=== PATIENT | male | born 1980 | race Caucasian/White ===

== ENCOUNTER 2017-05-27 08:46 | Emergency (ER) | payer BC ==
[2017-05-27] MEDS ORDERED: ACETAMINOPHEN 500 MG TAB PO ONE (09:03)
--- NOTE | 2017-05-27 09:22 | EDPHY ---
H & P Stated Complaint: on antibiotic for throat abcess since , not getting better Source: Patient, Family () Exam Limitations: No limitations - Personal History Current Tetanus/Diphtheria Vaccine: Unsure Current Tetanus Diphtheria and Acellular Pertussis (TDAP): Unsure - Medical/Surgical History Hx Asthma: No Hx Chronic Respiratory Disease: No Hx Diabetes: No Hx Cardiac Disease: No Hx Renal Disease: No Hx Cirrhosis: No Hx Alcoholism: No Hx HIV/AIDS: No Hx Splenectomy or Spleen Trauma: No Other PMH: depression. siezure disorder. appy - Social History Smoking Status: Never smoked Time Seen by Provider: 05/27/17 09:21 HPI/ROS: HPI: This is a 36-year-old male who presents with Chief Complaint: on antibiotic for throat abscess since , not getting better Location: Throat Quality: Pain Duration: 4 days Signs and Symptoms: + fever, no nausea, no vomiting, no abdominal pain, no neck stiffness, no cough, + swollen glands, no headache, + pain with eating and swallowing Timing: Constant Severity: Moderate to severe Context: Patient has a history of strep pharyngitis diagnosed 4 times over the last year presents with continued throat discomfort and swollen glands accompanied by fever since despite being on clarithromycin. Influenza test negative on per patient. Patient reports that he has a penicillin allergy he believes that caused a rash the is not sure. Last antibiotic was clarithromycin as well. Patient is drinking water taking [id number] pain medication. thinks he may have had scarlet fever this year. Denies any rashes at this time. He has not followed up with ear nose and throat with his repeat strep pharyngitis/tonsillitis. Modifying Factors: See above Comment: ROS: see HPI Constitutional: + fever, no chills, no weight loss Eyes: No blurred vision Respiratory: No shortness of breath, no cough Cardiovascular: No chest pain Gastrointestinal: No nausea, no vomiting, no diarrhea Genitourinary: No dysuria Extremities: No myalgias Neurologic: No weakness, no numbness Skin: No rashes Hematologic: No bruising, no bleeding MEDICAL/SURGICAL/SOCIAL HISTORY: Medical history: Depression, seizure disorder Surgical history: Appendicitis Social history: CONSTITUTIONAL: Ill-appearing but nontoxic adult white male, polite and cooperative, awake and alert, no obvious distress HEENT: Atraumatic and normocephalic, PERRL, EOMI. Tympanic membranes clear. Oropharynx clear, tonsils 1+ no erythema; white exudate, uvula midline and moist pink mucosa. Airway patent. Moderate anterior cervical lymphadenopathy. No meningismus. Cardiovascular: Normal S1/S2, tachycardia, regular rhythm, without murmur rub or gallop. PULMONARY/CHEST: Symmetrical and nontender. Clear to auscultation bilaterally. Good air movement. No accessory muscle usage. ABDOMEN: Soft, nondistended, nontender, no rebound, no guarding, no peritoneal signs, no masses or organomegaly. No CVAT. EXTREMITIES: 2/2 pulses, strength 5/5, no deformities, no clubbing, no cyanosis or edema. NEUROLOGICAL: no focal neuro deficits. GCS 15. SKIN: Warm and dry, no erythema. no rash. Good capillary refill. (Janay Pennington) Constitutional: Initial Vital Signs Temperature (C) 39.4 C H 05/27/17 08:52 Heart Rate 124 H 05/27/17 08:52 Respiratory Rate 20 05/27/17 08:52 Blood Pressure 118/84 H 05/27/17 08:52 O2 Sat (%) 95 05/27/17 08:52 O2 Delivery Mode Room Air Allergies/Adverse Reactions: Penicillins Allergy (Verified 05/27/17 08:51) Home Medications: Medication Instructions Recorded CLARITHROMYCIN 05/27/17 Cefpodoxime Proxetil 100 mg PO BID #20 tablet 05/27/17 Effexor Xr 05/27/17 FOCALIN 05/27/17 predniSONE [predniSONE TAPER] 10 mg PO DAILY 6 Days ea 05/27/17 Medical Decision Making ED Course/Re-evaluation: Labs, IV fluids, IV medication, oral medications ordered Lactic acid ordered due to tachycardia and fever. Given 2 L normal saline, IV Decadron, IV Toradol and p.o. viscous lidocaine, p.o. Tylenol Vital signs greatly improved at discharge. Stop taking clarithromycin as you have been taking macrolide the last 3-4 times for strep infection. Start taking cephalosporin. ENT referral. No signs of airway compromise/tonsillar abscess/Salomon's angina/sepsis Passed p.o. trial prior to discharge. This patient was seen under the supervision of my secondary supervising physician. I evaluated care for this patient independently. (Janay Pennington) I did not see this patient while he was in the emergency department. However his care was discussed with the PA while the patient was in the department. I agree with treatment plan and management (Gabriel Medina) Differential Diagnosis: Differential diagnosis includes but is not limited to strep pharyngitis, post pharyngeal abscess, tonsillar abscess, dehydration, sepsis. (Janay Pennington) - Data Points Laboratory Results: Laboratory Results 05/27/17 09:54 05/27/17 09:54 05/27/17 05/27/17 05/27/17 09:54 09:54 09:54 WBC 10.26 10^3/uL H 10^3/uL (3.80-9.50) RBC 4.81 10^6/uL 10^6/uL (4.40-6.38) Hgb 13.9 g/dL g/dL (13.7-17.5) Hct 39.4 % L % (40.0-51.0) MCV 81.9 fL fL (81.5-99.8) MCH 28.9 pg pg (27.9-34.1) MCHC 35.3 g/dL g/dL (32.4-36.7) RDW 12.7 % % (11.5-15.2) Plt Count 173 10^3/uL 10^3/uL (150-400) MPV 9.7 fL fL (8.7-11.7) Neut % (Auto) 75.5 % H % (39.3-74.2) Lymph % (Auto) 11.6 % L % (15.0-45.0) Whiteside % (Auto) 12.4 % % (4.5-13.0) Eos % (Auto) 0.0 % L % (0.6-7.6) Baso % (Auto) 0.2 % L % (0.3-1.7) Nucleat RBC Rel Count 0.0 % % (0.0-0.2) Absolute Neuts (auto) 7.75 10^3/uL H 10^3/uL (1.70-6.50) Absolute Lymphs (auto) 1.19 10^3/uL 10^3/uL (1.00-3.00) Absolute Monos (auto) 1.27 10^3/uL H 10^3/uL (0.30-0.80) Absolute Eos (auto) 0.00 10^3/uL L 10^3/uL (0.03-0.40) Absolute Basos (auto) 0.02 10^3/uL 10^3/uL (0.02-0.10) Absolute Nucleated RBC 0.00 10^3/uL 10^3/uL (0-0.01) Immature Gran % 0.3 % % (0.0-1.1) Immature Gran # 0.03 10^3/uL 10^3/uL (0.00-0.10) VBG Lactic Acid 1.2 mmol/L mmol/L (0.7-2.1) Sodium 136 mEq/L mEq/L (135-145) Potassium 3.7 mEq/L mEq/L (3.5-5.2) Chloride 100 mEq/L mEq/L (97-110) Carbon Dioxide 22 mEq/l mEq/l (22-31) Anion Gap 14 mEq/L mEq/L (8-16) BUN 9 mg/dL mg/dL (7-23) Creatinine 0.8 mg/dL mg/dL (0.7-1.3) Estimated GFR > 60 Glucose 127 mg/dL H mg/dL (70-100) Calcium 8.9 mg/dL mg/dL (8.5-10.4) Medications Given: Discontinued Medications Acetaminophen (Tylenol) 1,000 mg PO EDNOW ONE Stop: 05/27/17 09:04 Last Admin: 05/27/17 09:08 Dose: 1,000 mg Dexamethasone (Decadron Injection) 10 mg IVP EDNOW ONE Stop: 05/27/17 09:28 Last Admin: 05/27/17 09:48 Dose: 10 mg Sodium Chloride (Ns) 1,000 mls @ 0 mls/hr IV ONCE ONE; Wide Open PRN Reason: Protocol Stop: 05/27/17 09:28 Last Admin: 05/27/17 09:47 Dose: 1,000 mls Sodium Chloride (Ns) 1,000 mls @ 0 mls/hr IV EDNOW ONE; Wide Open PRN Reason: Protocol Stop: 05/27/17 10:49 Last Admin: 05/27/17 10:59 Dose: 1,000 mls Ketorolac Tromethamine (Toradol) 30 mg IVP EDNOW ONE Stop: 05/27/17 09:28 Last Admin: 05/27/17 09:49 Dose: 30 mg Lidocaine (Lidocaine 2% Viscous) 15 ml PO EDNOW ONE Stop: 05/27/17 09:28 Last Admin: 05/27/17 09:50 Dose: 15 ml Departure - Departure Disposition: Home, Routine, Self-Care Clinical Impression: Streptococcal tonsillitis Condition: Good Instructions: Strep Throat (ED) Additional Instructions: Consume a minimum of 8-10 glasses of water or electrolyte fluid replacement drinks that include Gatorade, Powerade, Pedialyte. Eat a bland diet for the next 48 hours and then slowly advance as tolerated. Take Tylenol 650 mg every 4 hours and/or Ibuprofen 600 mg every 8 hours with food as needed for pain. Stop taking clarithromycin and start taking cefpodoxime. Follow up with ENT in 1-2 weeks at which time they will evaluate and recommend with you if conservative management versus adjuvant therapy is indicated. Referrals: SRINI TAVERA [Primary Care Provider] - As per Instructions May Ruth MD [Medical Doctor] - As per Instructions Stand Alone Forms: Airline Excuse Prescriptions: Cefpodoxime Proxetil 100 mg PO BID #20 tablet predniSONE [predniSONE TAPER] 10 mg PO DAILY 6 Days ea
[2017-05-27] MEDS ORDERED: LIDOCAINE 2% VISCOUS 15 ML UDCUP PO ONE (09:27)
[2017-05-27] MEDS ORDERED: DEXAMETHASONE 10 MG/ML VIAL IVP ONE (09:27)
[2017-05-27] MEDS ORDERED: NS 1,000 ML IV ONE ×2 (09:27→10:48)
[2017-05-27] MEDS ORDERED: KETOROLAC 30 MG/1 ML SDV IVP ONE (09:27)
[2017-05-27 10:05] LABS: PLATELET COUNT 173 10^3/uL (150-400)
[2017-05-27 11:50] VITALS: BP 115/73; PULSE 88; RESP 14; TEMP 99.5; O2SAT 98
== END 2017-05-27 11:48 | disposition home or self-care (01) ==
DX: J03.00 Acute streptococcal tonsillitis, unspecified (principal); E86.9 Volume depletion, unspecified
CPT/HCPCS: 96374; J1100; J1885

== ENCOUNTER 2017-07-02 19:04 | Inpatient (IN) | payer BC ==
--- NOTE | 2017-07-02 20:05 | EDPHY ---
H & P Stated Complaint: SI But not currently - Personal History Current Tetanus/Diphtheria Vaccine: Unsure Current Tetanus Diphtheria and Acellular Pertussis (TDAP): Unsure - Medical/Surgical History Hx Asthma: No Hx Chronic Respiratory Disease: No Hx Diabetes: No Hx Cardiac Disease: No Hx Renal Disease: No Hx Cirrhosis: No Hx Alcoholism: No Hx HIV/AIDS: No Hx Splenectomy or Spleen Trauma: No Other PMH: depression. siezure disorder. 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 He has previously been seen a [facility] walk-in clinic and notes very little assistance from their care. His antidepression medications being managed by his primary care provider. History of cutting and burning behavior, none currently. PRIMARY CARE PROVIDER: REVIEW OF SYSTEMS: A ten point review of systems was performed and is negative with the exception of the items mentioned in the HPI PAST MEDICAL & SURGICAL HISTORY: Depression SOCIAL HISTORY: Social alcohol use PHYSICAL EXAM (Prior to examination, patient consented to physical exam, hands were washed and my usual and customary physical exam procedures followed) 1) GENERAL: Well-developed, well-nourished, alert and oriented. Appears to be in no acute distress. Calm cooperative 2) HEAD: Normocephalic, atraumatic 3) HEENT: Pupils equal, round, reactive to light bilaterally. Sclera anicteric. 4) NECK: Full range of motion, no meningeal signs. 5) LUNGS: Clear auscultation bilaterally, no wheezes, no rhonchi, no retractions. 6) HEART: Regular rate and rhythm, no murmur, no heave, no gallop. 7) ABDOMEN: No guarding, no rebound, no focal tenderness, negative McBurney's, negative Gama's, negative Rovsing's, negative peritoneal sign, 8) MUSCULOSKELETAL: Left upper extremity: Multiple subacute linear lesions. No signs of infection. Moving all extremities, no focal areas of tenderness, no obvious trauma. No peripheral edema or discoloration. 9) BACK: No CVA tenderness, no midline vertebral tenderness, no fluctuance, no step-off, no obvious trauma, no visual or palpable abnormality. 10) SKIN: No rash, no petechiae. 11) Psychiatric: Patient is oriented X 3, there is no agitation. Depressed, flat affect DIFFERENTIAL DIAGNOSIS: In no particular order including but not limited to depression, suicidal ideation, homicidal ideation (Radha Heck) Constitutional: Initial Vital Signs Temperature (C) 36.8 C 07/02/17 19:09 Heart Rate 74 07/02/17 19:09 Respiratory Rate 16 07/02/17 19:09 Blood Pressure 134/82 H 07/02/17 19:09 O2 Sat (%) 96 07/02/17 19:09 O2 Delivery Mode Room Air Allergies/Adverse Reactions: Penicillins Allergy (Verified 05/27/17 08:51) Home Medications: Medication Instructions Recorded CLARITHROMYCIN 05/27/17 Cefpodoxime Proxetil 100 mg PO BID #20 tablet 05/27/17 Effexor Xr 05/27/17 FOCALIN 05/27/17 predniSONE [predniSONE TAPER] 10 mg PO DAILY 6 Days ea 05/27/17 Medical Decision Making ED Course/Re-evaluation: 8:03 p.m.: At this time I do not think the patient meets criteria for 72 hr M1 hold. He is in the ER voluntarily. She does note worsening depression with transient suicidal ideation, none currently. Does feel he would benefit from inpatient therapy. Plan will be diagnostic studies and consultation with mental health entry level electrical engineer (Radha Heck) 6:30 a.m.- The patient has remained stable throughout my shift. He is awaiting re- evaluation by the mental health worker this morning. He was evaluated overnight , and he has agreed to a voluntary admission. We will try to place him at [facility] later this morning. The case will be signed out to the oncoming provider Dr. Keita at change of shift. (Latosha Lovelace) 7:00 a.m. the patient's care has been transferred to ca. He is here voluntarily. He denies suicidality but has not been very functional at home. He is currently sleeping comfortably with stable vital signs. They are going to attempt to get him to [facility] today of the bed is available. 8:00 a.m. the patient has been accepted at [address] [facility] [address] Baca. We will complete transfer paperwork. They did request that I cosigned a hold stating that he is gravely disabled. (Alexis Keita) - Data Points Laboratory Results: Laboratory Results 07/02/17 19:45 07/02/17 19:45 07/02/17 20:08 Urine Opiates Screen NEGATIVE (NEGATIVE) Urine Barbiturates NEGATIVE (NEGATIVE) Ur Phencyclidine Scrn NEGATIVE (NEGATIVE) Ur Amphetamine Screen NEGATIVE (NEGATIVE) U Benzodiazepines Scrn NEGATIVE (NEGATIVE) Urine Cocaine Screen NEGATIVE (NEGATIVE) U Marijuana (THC) Screen NEGATIVE (NEGATIVE) Departure - Departure Referrals: SRINI TAVERA [Primary Care Provider] - As per Instructions
[2017-07-02 20:14] LABS: PLATELET COUNT 278 10^3/uL (150-400)
[2017-07-03] MEDS ORDERED: VENLAFAXINE XR 150 MG CAP PO ONE (11:11)
[2017-07-03] MEDS ORDERED: carBAMazepine 200 MG TAB ONE (11:12)
[2017-07-03] MEDS ORDERED: VENLAFAXINE XR 150 MG CAP PO SCH (11:15)
[2017-07-03] MEDS ORDERED: carBAMazepine ER 200 MG CAP PO SCH (11:15)
[2017-07-03] MEDS ORDERED: MAG HYDROX/AL HYDROX/SIMETH 30 ML UDCUP PO PRN (11:16)
[2017-07-03] MEDS ORDERED: ACETAMINOPHEN 325 MG TAB PO PRN (11:16)
[2017-07-03] MEDS ORDERED: MAGNESIUM HYDROXIDE 30 ML UDCUP PO PRN (11:16)
[2017-07-03] MEDS ORDERED: OLANZapine DISINTEGR 10 MG TAB PO PRN (11:16)
[2017-07-03] MEDS ORDERED: NICOTINE POLACRILEX 2 MG GUM B PRN (11:16)
[2017-07-03] MEDS ORDERED: carBAMazepine ER 200 MG TAB PO ONE (11:16)
[2017-07-03] MEDS: carBAMazepine ER 200 MG TAB PO SCH ×2 (11:28→20:57)
[2017-07-03] MEDS ORDERED: hydrOXYzine HCL 25 MG TAB PO PRN (11:47)
[2017-07-03] MEDS ORDERED: IBUPROFEN 200 MG TAB PO PRN (11:47)
[2017-07-03] MEDS ORDERED: VENLAFAXINE HCL 75 MG TAB PO ONE (14:08)
--- NOTE | 2017-07-03 15:12 | BAPA ---
[f rep st] ADMISSION PSYCHIATRIC ASSESSMENT IDENTIFICATION: This is a 37-year-old white male who lives alone, but has partial custody of a 6-year-old son with his ex- who lives in the area. Patient's parents live in [place]. He works at a [employer]. CHIEF COMPLAINT: "The depression has been ratcheting up." HISTORY OF PRESENT ILLNESS: Patient reports he has had some element of depression since he was a child including low energy, low activity, feeling hopeless about the future. He reports he had a concussion around 1999, around age 19. From that he had a loss of consciousness with subsequent nausea and headaches. He was able to graduate from college, but then in 2002 or 2003 he reported worsening depression and anxiety, and started developing suicidal ideation including self-strangulation attempt and an overdose of Tegretol which he had started taking for seizures. The patient reports struggling with severe depression, anxiety, and suicidal thinking since about 2002, but having mild depression prior to that. He does report in the past month sleeping fairly well , but having numerous worries, worrying about the future, feeling distracted. The patient reports recurrent thoughts of or suicide. The patient is a poor historian. He is vague and circumstantial. He does report that he has been on Focalin, Effexor 225 mg for ADHD and depression for the past 2 years, but he does not feel like either of them are helpful. He has been taking Tegretol for seizure disorder since 2003 as well. He has been receiving these medications from his primary care provider. The patient denies any auditory hallucinations or paranoia. He denies agitation, irritability, reckless spending, promiscuity, or decreased need for sleep, or sustained elevated energy. He denies any drug or alcohol abuse. He denies any recent change in his physical health, but reports chronic mild diarrhea. He also has episodic migraine headaches. PAST PSYCHIATRIC HISTORY: As noted above, he started getting mental health treatment around 2002 for depression and anxiety. In 2003, he was hospitalized at a psychiatric facility in [facility]. He reports he was discharged on Effexor and Seroquel. He reports Seroquel was extremely sedating and he discontinued this medication, but has taken Effexor continuously since 2003, interrupted by episodes of trying to switch the Effexor to a different antidepressant. He reports attempts to switch the Effexor to Zoloft, was not beneficial and led to more anxiety and feeling stressed and irritable. He also reports a failed trial of transition from Effexor to Lexapro with some more problems with worsening depression. He denies ever taking lithium or Abilify or ever receiving ECT. He denies any history of violence toward others. The patient reports that in the past few weeks he has been having thoughts of overdosing or cutting himself or burning himself. The patient explained his symptoms to his girlfriend and his girlfriend accompanied him to the emergency department. The patient was admitted to the inpatient unit on M1 hold. PAST MEDICAL HISTORY: As noted above, he had a concussion in 1999. The patient also has a history of migraine headaches and mild diarrhea, and an appendectomy. His primary care provider is [facility], Dr. Castillo. ALLERGIES: He has an allergy to penicillin. LABS: CBC WNL, BMP WNL with glucose 118; Urine Drug Screen negative. SOCIAL HISTORY: He was raised by his parents without abuse or neglect. His parents live in the [place] area. He graduated from high school, graduated from college, got a PhD in computer science. He is and has a 6-year-old son. He and his ex- who is in the area, they have joint custody of him. 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 He denies ever being in the or being arrested. He denies owning a gun. FAMILY HISTORY: He is unsure but he believes a grandmother may have had schizophrenia. He has multiple relatives with depression and anxiety. He denies family history of suicide or substance abuse. VITALS: 118/72, 84, 12, 94% on room air, temp 37.0; MENTAL STATUS EXAM: He is an alert white male in no acute distress. He is ambulatory. He has glasses. He appears very distracted. His speech is regular rate and rhythm with a circumstantial vague thought process. He reports recurrent thoughts of and suicide. Denies plan or intent to harm himself on the unit at this point. He does report having thoughts of overdosing or cutting himself prior to admission. He denies paranoia or hallucinations. He denies violent thoughts. His memory is intact to month, year, hospital. He also has intact serial 7 subtractions and a normal clock drawing test. His insight appears to be limited. His judgment appears to be questionable. ASSESSMENT: Major depressive disorder, recurrent, severe, without psychotic features. Unspecified anxiety disorder. Rule out mood disorder secondary to traumatic brain injury, also, suicidal ideation. PLAN: 1. The patient is on an M1 hold due to concern he may be a danger to himself. He is on 15 minute suicide precautions. 2. The patient was ordered his carbamazepine 200 mg p.o. b.i.d. for his chronic seizure disorder. A level is pending. 3. Will continue the patient's Effexor 225 mg daily as the patient reports failed attempts to reduce or discontinue this medication in the past. 4. Ordered hemoglobin A1c, lipid panel, Tegretol level, TSH and vitamin B12 level to be added onto the blood work from the ER. 5. We will attempt to get collateral information from the patient's parents and girlfriend, as well as the hospitalization he had in [place], which the patient signed a release of information for. 6. Discussed the risks and benefits of either retrying Seroquel augmentation of Effexor, or trying adding on Abilify, lithium, or Remeron for treatment of refractory depression. The patient wanted to review handouts on those medications to review the side-effect profiles before further medication changes. 7. Will discontinue the patient's Focalin as this can interact with venlafaxine and cause agitation or anxiety. 8. Will monitor the patient's mood stability and behavior on the inpatient unit to clarify his diagnosis. /[id number]/MODL MTDD
--- NOTE | 2017-07-03 20:34 | BCON ---
[f rep st] BEHAVIORAL HEALTH CONSULTATION DATE OF CONSULTATION: 07/03/2017 REFERRING PHYSICIAN: AMITA CHAVES MD REASON FOR REFERRAL: Medical clearance for inpatient behavioral health stay. HISTORY OF PRESENT ILLNESS: This patient came to the emergency department yesterday complaining of depression and suicidal ideation. He was assessed by the mental health team and admitted for further psychiatric care on a voluntary basis. He currently is without any acute complaints. PAST MEDICAL HISTORY: 1. Concussion in approximately the year 1999. 2. Seizure disorder subsequent to the concussion. 3. Depression. 4. Appendicitis. 5. Streptococcal pharyngitis. PAST SURGICAL HISTORY: He has had an appendectomy. MEDICATIONS: Prior to admission he was takin. Carbamazepine 200 mg p.o. twice daily. 2. Venlafaxine 225 mg p.o. daily. 3. Dexmethylphenidate 20 mg p.o. daily. ALLERGIES: There is an allergy listed to penicillin. SOCIAL HISTORY: He is and has shared custody of his 6-year-old child. He has a girlfriend. He is a nonsmoker, nondrinker, and he works in [employer]. He has a PhD. FAMILY HISTORY: There is a family history of mental health issues. REVIEW OF SYSTEMS: He reports he has had weight gain of several pounds in recent months. He says he snores. He says he sometimes does not awaken refreshed. He reports that he has a chronic headache which has been present and low-grade since some time after his concussion. He often does not notice it , but if anybody asks him in particular, then he would say "yes" he does have a headache. He is not aware of any current neurologic issues otherwise. Otherwise, a 10-point review of systems is negative. PHYSICAL EXAM: VITAL SIGNS: Blood pressure is 118/72, heart rate is 84, respiratory rate is 12, oxygen saturation is 94% on room air, temperature is 37 degrees centigrade. His weight is 95.2 kg for a body mass index of 27.7. GENERAL: This is an overweight man who appears his chronologic age, cooperative and in no acute distress. HEENT: Extraocular movements are intact. Pupils are equal, round, reactive to light. Mucous membranes are moist. Dentition is in good condition. He has an uncrowded airway, Mallampati class 1. There is no oropharyngeal erythema and no posterior oropharyngeal mucus. NECK: Supple. HEART: There is a regular rate and rhythm with no murmurs, rubs, or gallops. LUNGS: Clear to auscultation bilaterally. ABDOMEN : Benign. EXTREMITIES: There is no cyanosis, clubbing, or edema. Radial and dorsalis pedis pulses are 2+ bilaterally. NEUROLOGICAL: He is alert and oriented x3. Cranial nerves 2-12 are grossly intact. There is no focal weakness. Sensation is intact to light touch and gait is within normal limits. LABORATORY STUDIES: CBC was overall within normal limits. He had an elevation of absolute lymphocytes at 3.07 with the upper range of normal being 3, of no clinical significance. Serum chemistry revealed normal renal function and electrolytes. His creatinine was low at 0.6. Hemoglobin A1c was 5.7. Lipid panel revealed elevated triglycerides at 310. The cholesterol was normal at 199 , LDL was calculated at 83, HDL was 54. B12 level was 326, normal, and TSH was normal 3.65. Toxicology screen in the serum was negative for ethyl alcohol. Toxicology screen in the urine was negative for any substances of abuse. Carbamazepine serum level was undetectable, less than 3. ASSESSMENT/RECOMMENDATIONS: 1. Mental health issues pending further evaluation and management per Psychiatry and the mental health team. 2. Seizure disorder subsequent to remote concussion with a subtherapeutic carbamazepine level. His carbamazepine prescription has been continued and this is appropriate. He has not had a seizure in many years given. Chronic use of carbamazepine: will check a vitamin D level. 3. Weight gain and mildly overweight status. Consider avoiding medications which might cause further weight, though psychosocial stabilization is first priority. 4. Chronic headaches, could be post concussive headache. Given the chronicity , it seems unlikely that these can be fully resolved. Advise follow-up with Neurology after discharge if he wants to pursue further evaluation or treatment. I see no medical contraindications to this patient's continued stay on the inpatient behavioral health unit or to any psychiatric medications or procedures. Thank you very much for including me in the care of this patient and please do not hesitate to contact me or the hospitalist service should there be need for further medical evaluation. /[id number]/MODL MTDD
[2017-07-04] MEDS: carBAMazepine ER 200 MG TAB PO SCH ×2 (10:30→21:20)
[2017-07-04] MEDS: CHOLECALCIFEROL VIT D3 2,000 UNITS TAB/CAP PO SCH (10:32)
[2017-07-04] MEDS: VENLAFAXINE XR 150 MG CAP PO SCH ×3 (10:40→10:45)
[2017-07-04] MEDS: VENLAFAXINE XR 75 MG CAP PO SCH (10:45)
[2017-07-04] MEDS: LITHIUM CARBONATE 300 MG CAP PO SCH ×2 (13:30→21:20)
--- NOTE | 2017-07-04 13:33 | SOAPPROG ---
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 Prior history of attempts. Patient currently denies SI but reports feeling hopeless at times. Patient has failed several prior antidepressant trials and reports worsening symptoms when Effexor tapered in past and no benefit from higher dose. Plan: Patient agrees to voluntary treatment Patient doesn't want increased Tegretol dosing until Neurology evaluation Start Vitamin D, folic acid, and Fish Oil Focalin held/discontinued Continue Effexor 225mg Start Guanfacine 1mg QHS for sleep/ADHD. Discussed risk of syncope and hypotension. VIVIAN handout given. Start [place] 300mg BID as adjunctive treatment for depression. Discussed risk of sedation, drug interactions, signs/symptoms of toxicity, risk of renal and thyroid dysfunction. VIVIAN handout given. Monitor mood and risk of self-harm Discussed lab results with patient 07/04/17 13:40 Subjective: CC: 'alright today so far.' Patient reports difficulty falling asleep and taking Vistaril last night. Reports previous Neurologist told him that he could possibly taper off Tegretol in the future and doesn't want higher dose until discussing with a Neurologist in [place]. Reports no seizure for 10 years. Reports wanting to feel better for himself, son, girlfriend, and job. Reports no plans to harm himself but feels hopeless and overwhelmed 'off and on.' Reviewed handouts on [place] and Seroquel and Abilify and is worried about metabolic syndrome and tardive dyskinesia. Objective: Vital Signs Temp Pulse Resp BP Pulse Ox 36.6 C 70 16 112/67 95 07/04/17 06:00 07/04/17 06:00 07/04/17 06:00 07/04/17 06:00 07/04/17 06:00 Alert WM. No tremors or weakness. Appears preoccupied and distracted at times. Mood 'alright today so far.' Thoughts organized with limited detail. Denies SI or HI or AH or paranoia but reports feeling hopeless 'off and on.' Fair memory. Fair insight. Staff report patient slept 8 hours, attending groups, denies SI on unit. Took PRN Vistaril for difficulty falling asleep yesterday. Mother and girlfriend during visit report patient appears anxious and sad frequently but is able to keep up home, work, and care for son part-time without problems. HgbA1c 5.7, Trig 310 other lipids WNL; B12 326; TSH WNL, vitamin D <12.5 Carbamazepine 3.0 - Time Spent With Patient Time Spent With Patient: 30 minutes - Pending Discharge Pending Discharge Within 24 Hours: No Pending Discharge Within 48 Hours: No ICD10 Worksheet Patient Problems: Problems Problem Status Onset Attention and concentration deficit Acute Major depressive disorder Acute
[2017-07-04] MEDS: guanFACINE HCL 1 MG TAB PO SCH (21:19)
[2017-07-05] MEDS: CHOLECALCIFEROL VIT D3 2,000 UNITS TAB/CAP PO SCH (08:43)
[2017-07-05] MEDS: carBAMazepine ER 200 MG TAB PO SCH ×2 (08:43→20:32)
[2017-07-05] MEDS: OMEGA-3 FATTY ACIDS 1,000 MG CAP PO SCH (08:44)
[2017-07-05] MEDS: VENLAFAXINE XR 150 MG CAP PO SCH (08:44)
[2017-07-05] MEDS: FOLIC ACID 1 MG TAB PO SCH (08:45)
[2017-07-05] MEDS: LITHIUM CARBONATE 300 MG CAP PO SCH ×2 (08:45→20:33)
[2017-07-05] MEDS: VENLAFAXINE XR 75 MG CAP PO SCH (08:45)
[2017-07-05] MEDS ORDERED: hydrOXYzine HCL 25 MG TAB PO PRN (11:06)
--- NOTE | 2017-07-05 12:16 | SOAPPROG ---
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 Prior history of attempts. Patient has failed several prior antidepressant trials and reports worsening symptoms when Effexor tapered in past and no benefit from higher dose. Patient appears less dysphoric and denies SI. Plan: Patient is voluntary Patient doesn't want increased Tegretol dosing until Neurology evaluation Focalin held/discontinued Continue Effexor 225mg Continue Guanfacine 1mg QHS for sleep/ADHD. Continue [place] 300mg BID as adjunctive treatment for depression. Monitor mood and risk of self-harm Check AM BMP and [place] level (will not be steady state) Possible discharge tomorrow if continuing to improve and continuing to safety plan 07/05/17 12:17 Subjective: CC: "OK this morning" Patient reports tolerating Guanfacine and [place], slept well, denies side effects. Reports wanting to live for son, extended family, friends. Reports his strengths are that he is intelligent, hard working, a good friend, and a good father. Reports in past month feeling 'stressed, anxious' and stuggling to enjoy any activities and avoiding social activities and procrastinating on home tasks. Reports intermittent suicidal thoughts in past month were related to feeling that he was a failure due to struggling a work to gain a promotion. Reports now realizing that there are more complex problems at work but wants to 'stick it out' and continue to work in lab. Reports goal of discharge tomorrow if continuing to feel better. Unsure if he will use coping skills after discharge, but wants to be able to relax by exercising, listening to music, talking to friends, or doing art work if upset. Objective: Vital Signs Temp Pulse Resp BP Pulse Ox 36.6 C 70 14 101/57 L 94 07/05/17 06:00 07/05/17 06:00 07/05/17 06:00 07/05/17 06:00 07/05/17 06:00 Alert WM. Glasses. No tremors or weakness. Appears distracted at times. Mood 'OK this morning.' Affect restrict mostly, brief smiling at times. Thoughts organized with better detail than before. Denies SI or HI or AH or paranoia. Fair insight, appropriate judgment. Staff report patient slept 7.5 hours. Calm, quiet on unit. - Time Spent With Patient Time Spent With Patient: 30 minutes - Pending Discharge Pending Discharge Within 24 Hours: Yes Pending Discharge Date: 07/06/17 Pending Discharge Time: 11:00 ICD10 Worksheet Patient Problems: Problems Problem Status Onset Attention and concentration deficit Acute Major depressive disorder Acute
[2017-07-05] MEDS: guanFACINE HCL 1 MG TAB PO SCH ×2 (20:33→22:01)
[2017-07-05] MEDS ORDERED: OLANZapine DISINTEGR 5 MG TAB ONE (20:35)
[2017-07-06] MEDS: VENLAFAXINE XR 150 MG CAP PO SCH (09:12)
[2017-07-06] MEDS: OMEGA-3 FATTY ACIDS 1,000 MG CAP PO SCH (09:12)
[2017-07-06] MEDS: VENLAFAXINE XR 75 MG CAP PO SCH (09:12)
[2017-07-06] MEDS: LITHIUM CARBONATE 300 MG CAP PO SCH (09:12)
[2017-07-06] MEDS: CHOLECALCIFEROL VIT D3 2,000 UNITS TAB/CAP PO SCH (09:12)
[2017-07-06] MEDS: carBAMazepine ER 200 MG TAB PO SCH ×2 (09:12→21:07)
[2017-07-06] MEDS: FOLIC ACID 1 MG TAB PO SCH (09:12)
--- NOTE | 2017-07-06 12:20 | SOAPPROG ---
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 Prior history of attempts. Patient has failed several prior antidepressant trials. Patient reports severe depression and anxiety with mood instability impairing his ability to work. Patient appears internally preoccupied, reports overabundance of thoughts, has briefly rapid speech - concerning for a mixed episode; patient had panic attack yesterday and appears to have mood instability. Plan: Patient is voluntary Patient doesn't want increased Tegretol dosing until Neurology evaluation Focalin held/discontinued Reduce Effexor 150mg due to mixed symptoms Continue Guanfacine 1mg QHS for sleep/ADHD. Increase [place] 450mg BID Start Lorazepam 0.5mg PRN Panic Attack. Discussed risk of depression, amnesia, impulsivity, driving impairment, and no alcohol. Discontinue PRN Olanzapine and PRN Hydroxyzine Monitor mood and risk of self-harm Check [place] level Sunday07/09/17 Possible discharge Sunday07/09/17 if improving 07/06/17 12:29 Subjective: CC: "Not so good, tired" 'stressed about work, maybe I am better, not sure, some times I feel better, sometimes I'm more depressed.' Patient reports yesterday having 'on and off' overabundance of thoughts with multiple worries about future and job. Reports mood instability with times of feeling confident in himself and confident that he can return to work and other times feeling overwhelmed, 'stressed out,' and feeling hopeless that he cannot function. When asked if others have observed him talking fast, says 'a lot of people have said that.' Reports no thoughts of self harm or suicide but felt hopeless about life yesterday. Reports having a panic attack of feeling overwhelmed and agitated yesterday. Reports combination of Olanzapine and Hydroxyzine were not clearly helpful and feels extremely tired. Reports past benefit from PRN Lorazepam. Reports negative emotions and feeling overwhelmed interfere with his functioning at work and reduces motivation to spend time with son. Reports wanting to be well for friends, parents, son, and goal of getting a better job. Objective: Vital Signs Temp Pulse Resp BP Pulse Ox 36.3 C 59 L 14 96/59 L 91 L 07/06/17 06:00 07/06/17 06:00 07/06/17 06:00 07/06/17 06:00 07/06/17 06:00 Laboratory Results 07/06/17 05:45 [place] 0.2 (not steady state, 48 hours of 300mg BID). BMP WNL Staff report patient extremely anxious and briefly agitated with episodic internal preoccupation on unit, got PRN Zydis and PRN Hydroxyzine last night then slept 8 hours. Alert WM. Distracted. Briefly rapid speech. Mood 'not so good, tired this morning' 'stressed about work, maybe I am better, not sure, some times I feel better, sometimes I'm more depressed.' Affect preoccupied. Thoughts briefly organized, limited detail. Denies SI but reports episodic hopelessness. Denies AH or paranoia. No evident delusions. Limited insight. Questionable judgment. - Time Spent With Patient Time Spent With Patient: 30 minutes - Pending Discharge Pending Discharge Within 24 Hours: No Pending Discharge Within 48 Hours: No ICD10 Worksheet Patient Problems: Problems Problem Status Onset Attention and concentration deficit Acute Major depressive disorder Acute
[2017-07-06] MEDS: LITHIUM CARBONATE ER 450 MG TAB PO SCH (21:08)
[2017-07-06] MEDS: guanFACINE HCL 1 MG TAB PO SCH (21:48)
[2017-07-07] MEDS: VENLAFAXINE XR 150 MG CAP PO SCH (08:26)
[2017-07-07] MEDS: LITHIUM CARBONATE ER 450 MG TAB PO SCH ×2 (08:26→20:05)
[2017-07-07] MEDS: OMEGA-3 FATTY ACIDS 1,000 MG CAP PO SCH (08:26)
[2017-07-07] MEDS: CHOLECALCIFEROL VIT D3 2,000 UNITS TAB/CAP PO SCH (08:26)
[2017-07-07] MEDS: FOLIC ACID 1 MG TAB PO SCH (08:26)
[2017-07-07] MEDS: carBAMazepine ER 200 MG TAB PO SCH ×2 (08:27→20:05)
--- NOTE | 2017-07-07 14:34 | SOAPPROG ---
SOAP Progress Note Assessment/Plan: Assessment: Per Dr. 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 Prior history of attempts. Patient has failed several prior antidepressant trials. Patient reports severe depression and anxiety with mood instability impairing his ability to work. Patient appears internally preoccupied, reports overabundance of thoughts, has briefly rapid speech - concerning for a mixed episode; patient had panic attack yesterday and appears to have mood instability. Plan: Patient is voluntary Patient doesn't want increased Tegretol dosing until Neurology evaluation Focalin held/discontinued Reduce Effexor 150mg due to mixed symptoms Continue Guanfacine 1mg QHS for sleep/ADHD. Increase [place] 450mg BID Start Lorazepam 0.5mg PRN Panic Attack. Discussed risk of depression, amnesia, impulsivity, driving impairment, and no alcohol. Discontinue PRN Olanzapine and PRN Hydroxyzine Monitor mood and risk of self-harm Check [place] level Sunday07/09/17 Possible discharge Sunday07/09/17 if improving Plan: 07/07/17 14:31 1. Continue on current med regimen. Denies SE's from [place]. Level on 07/06 was 0.2, dose was increased to 450mg BID. 2. [place] level on 07/09/17. 3. Patient denies any SI/HI. Subjective: Met with patient, reviewed chart and d/w staff. Patient attended art therapy group in AM. He said he "felt good" and was interacting appropriately with peers and participating in treatment. He denies any SE's from lithium and feels he will be ready to discharge on Sunday as planned. He denies any thoughts, plan or intent to hurt himself or anyone else. Objective: Vital Signs Temp Pulse Resp BP Pulse Ox 36.4 C 51 L 14 109/56 L 94 07/07/17 06:00 07/07/17 06:00 07/07/17 06:00 07/07/17 06:00 07/07/17 06:00 Laboratory Results 07/06/17 05:45 MSE: Affect: Euthymic Mood: "Good" TP: Linear TC: Denies any SI/HI, no AH/VH Insight/Judgment: Fair - Time Spent With Patient Time Spent With Patient: 15" - Pending Discharge Pending Discharge Within 24 Hours: No Pending Discharge Within 48 Hours: Yes Pending Discharge Date: 07/09/17 (Likely to d/c on Sunday) Pending Discharge Time: 11:00 ICD10 Worksheet Patient Problems: Problems Problem Status Onset Asperger syndrome Acute Attention and concentration deficit Acute Major depressive disorder Acute Panic attack Acute
[2017-07-07] MEDS: guanFACINE HCL 1 MG TAB PO SCH (20:05)
[2017-07-07] MEDS: LORazepam 0.5 MG TAB PO PRN (22:17)
[2017-07-08] MEDS: OMEGA-3 FATTY ACIDS 1,000 MG CAP PO SCH (08:23)
[2017-07-08] MEDS: VENLAFAXINE XR 150 MG CAP PO SCH (08:23)
[2017-07-08] MEDS: FOLIC ACID 1 MG TAB PO SCH (08:23)
[2017-07-08] MEDS: carBAMazepine ER 200 MG TAB PO SCH ×2 (08:23→20:46)
[2017-07-08] MEDS: LITHIUM CARBONATE ER 450 MG TAB PO SCH ×2 (08:23→20:46)
[2017-07-08] MEDS: CHOLECALCIFEROL VIT D3 2,000 UNITS TAB/CAP PO SCH (08:23)
--- NOTE | 2017-07-08 13:25 | SOAPPROG ---
SOAP Progress Note Assessment/Plan: Assessment: Per Dr. 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 Prior history of attempts. Patient has failed several prior antidepressant trials. Patient reports severe depression and anxiety with mood instability impairing his ability to work. Patient appears internally preoccupied, reports overabundance of thoughts, has briefly rapid speech - concerning for a mixed episode; patient had panic attack yesterday and appears to have mood instability. Plan: Patient is voluntary Patient doesn't want increased Tegretol dosing until Neurology evaluation Focalin held/discontinued Reduce Effexor 150mg due to mixed symptoms Continue Guanfacine 1mg QHS for sleep/ADHD. Increase [place] 450mg BID Start Lorazepam 0.5mg PRN Panic Attack. Discussed risk of depression, amnesia, impulsivity, driving impairment, and no alcohol. Discontinue PRN Olanzapine and PRN Hydroxyzine Monitor mood and risk of self-harm Check [place] level Sunday07/09/17 Possible discharge Sunday07/09/17 if improving Plan: 07/07/17 14:31 1. Continue on current med regimen. Denies SE's from [place]. Level on 07/06 was 0.2, dose was increased to 450mg BID. 2. [place] level on 07/09/17. 3. Patient denies any SI/HI. 07/08/17 13:22 1. CCM - stable 2. [place] level in AM 3. Possible D/C tomorrow to intake eval at [facility] Subjective: Met with patient, reviewed chart and d/w staff. Patient presents calm, cooperative, stable. He reports feeling "good" today, denies feeling sad, depressed or anxious. He rated his anxiety 0 out of 10 this AM. He feels "ready " for d/c tomorrow and is looking forward to starting outpatient treatment through [facility] clinic. He denies any SI/HI. Objective: Vital Signs Temp Pulse Resp BP Pulse Ox 36.6 C 98 14 124/81 H 94 07/08/17 12:39 07/08/17 12:39 07/08/17 12:39 07/08/17 12:39 07/08/17 12:39 Laboratory Results 07/06/17 05:45 MSE: Affect: Euthymic Mood: "Good" denies any anxiety or depression TP: Linear TC: No SI/HI, no AH/VH Insight/Judgment: Fair - Time Spent With Patient Time Spent With Patient: 20" - Pending Discharge Pending Discharge Within 24 Hours: No Pending Discharge Within 48 Hours: No ICD10 Worksheet Patient Problems: Problems Problem Status Onset Asperger syndrome Acute Attention and concentration deficit Acute Major depressive disorder Acute Panic attack Acute
[2017-07-08] MEDS: guanFACINE HCL 1 MG TAB PO SCH (20:46)
[2017-07-08] MEDS: LORazepam 0.5 MG TAB PO PRN (22:10)
[2017-07-09 06:28] VITALS: BP 111/58; PULSE 54; RESP 16; TEMP 97.6; O2SAT 92
[2017-07-09] MEDS: CHOLECALCIFEROL VIT D3 2,000 UNITS TAB/CAP PO SCH (09:20)
[2017-07-09] MEDS: carBAMazepine ER 200 MG TAB PO SCH (09:20)
[2017-07-09] MEDS: OMEGA-3 FATTY ACIDS 1,000 MG CAP PO SCH (09:20)
[2017-07-09] MEDS: FOLIC ACID 1 MG TAB PO SCH (09:20)
[2017-07-09] MEDS: VENLAFAXINE XR 150 MG CAP PO SCH (09:20)
[2017-07-09] MEDS: LITHIUM CARBONATE ER 450 MG TAB PO SCH (09:20)
--- NOTE | 2017-07-09 10:02 | BDS ---
[f rep st] BEHAVIORAL HEALTH DISCHARGE SUMMARY IDENTIFICATION: This is a 37-year-old white male who lives alone in an apartment. He has joint custody of a 6-year-old son with his ex- who lives in the area. His parents live in the [place] area as well. He has a PhD in [employer] science and works in the [employer]. REASON FOR ADMISSION: Please see the initial psychiatric evaluation from July 03, 2017. The patient had reported to his friends that he was having depression with thoughts of overdosing on pills. He was initially admitted to the unit on an M1 hold. HOSPITAL COURSE: The patient agreed to voluntary treatment on the inpatient unit for severe depression. He reported history of social anxiety consistent with Asperger's disorder, with poor social skills since childhood. He had reported inattention, anxiety and depression for many years. He apparently had a concussion in his early 20s and had a seizure subsequent to that, and was on carbamazepine for a history of a seizure disorder, but had not had a seizure for 10 years prior to admission. The patient reported a history of an overdose in a psychiatric hospitalization in [place] around 2002, treated with Effexor and Seroquel. Subsequent to that, the patient's Seroquel was tapered off and he had multiple antidepressant trials over many years for recurrent depression and anxiety. The patient had not been seeing a psychiatrist for 2 years and had not been receiving psychotherapy for several years for anxiety, and had been taking Effexor 225 mg and Focalin 20 mg a day from his primary care provider for depression and inattention. On the unit, the patient initially presented as being anxious, depressed, distracted, and reporting feeling hopeless. He reported no benefit from multiple alternative antidepressant trials. The patient was agreeable to start guanfacine for attention deficit hyperactivity disorder and poor attention and to discontinue the Focalin, as this can interact with Effexor. The patient tolerated guanfacine for sleep and attention deficit hyperactivity disorder without any hypotension or side effects. He appears to have brief panic attacks and was started on Lorazepam 0.5mg PRN. The patient reported previous benefit from PRN lorazepam and reported past usage of only 1-2 times a month. He was counseled about the risk of dependency and withdrawal with Lorazepam, as well as the risk of sedation and driving impairment and importance of not drinking alcohol with this medication. The patient did appear to have recurrent major depression. He was given information about possible augmentation of Effexor with either Remeron, lithium , Seroquel or Abilify. The patient was agreeable to start lithium. Due to concern the patient had possibly mood swings and brief rapid speech, there was concern of a mixed episode as well, so his Effexor was reduced from 225mg to 150mg a day. The patient was started on lithium 300 mg twice a day and then that was increased to 450 mg twice a day with a serum level of 0.6 prior to discharge. The patient was counseled about the risks of lithium causing hypothyroidism, renal dysfunction, drug interactions, delirium, and other side effects. The patient tolerated lithium without any major side effects. The patient reported improvement in mood stability as well as reduced intensity of sadness and hopelessness. He reported remission of his suicidal thinking. He was able to sign a release of information and had his care coordinated with his mother in [place], as well as several friends in the area. The patient on the unit was calm and appropriate. He initially had social anxiety and was isolative. He also initially appeared distracted and preoccupied. This improved during the course of the hospitalization. He had better eye contact, appeared less anxious, appeared more euthymic and less distressed. He repeatedly denied further thoughts of harming himself. He was able to complete a safety plan, outlining symptoms he was having prior to admission, coping skills to use to manage intense emotions, as well as supports he can contact if he is not feeling well. Prior to discharge, the patient is future oriented, reported wanting to spend time with his friends and his son. He also reports wanting to return to work and to possibly look for a new job as he does not like his current job. The patient on the unit did not display any self-injurious behavior, agitation, violent behavior and did not require restraints or seclusion. He was calm and appropriate throughout the hospitalization. He was able to attend groups and engage in individual counseling. The patient did not have an outpatient psychiatrist and was referred to [facility] outpatient program for followup. The patient's Focalin was discontinued. The patient's carbamazepine level was low. The patient did not want an increase in dosing of this medication, as he reported he had not had a seizure in 10 years and was hopeful to see a neurologist after discharge to discuss whether or not he needed to continue on this medication or taper off it. The patient had a vitamin D deficiency and was started on vitamin D. He was also started on omega-3 fatty acids for elevated triglycerides. He was also started on folic acid 1 mg a day. CONDITION ON DISCHARGE: He is an alert white male in no acute distress. He is ambulatory, cooperative, pleasant. No tremors or weakness. He has glasses, limited eye contact. His speech is regular rate and rhythm. His thoughts are organized. He denies thoughts to hurt himself or others. He describes his mood as "pretty good." His affect is euthymic and reactive. He denies paranoia or hallucinations. He has fair insight and appropriate judgment. CONSULTS: The patient was seen on July 03, [address] Cabrera for baseline physical exam. PROCEDURES: None. LABS PENDING: None. ADVANCED DIRECTIVES: The patient declined to have an advance directive. NICOTINE USE DISORDER SCREENING: Patient denied any regular use of alcohol or nicotine. METABOLIC SCREENING: The patient had elevated triglycerides and was counseled on a low-carbohydrate low-fat diet and started on fish oil for hyperlipidemia. He was also encouraged to exercise 30 minutes daily. LAB RESULTS: Include the following: Sodium 143, potassium 4.3, creatinine 0.7 , glucose 76, calcium 9.3, hemoglobin A1c 5.7, triglycerides 310, LDL 83, HDL 54 , B12 326. Vitamin D was less than 12.8, which is low. TSH 3.6. Urine drug screen was negative. Carbamazepine level was less than 3.0. [place] level was 0.6 prior to discharge. DISCHARGE DIAGNOSES: Major depressive disorder, recurrent, severe, with mixed features. Attention deficit hyperactivity disorder, inattentive type. Rule out mood disorder secondary to traumatic brain injury. Generalized anxiety disorder with panic attacks Elevated triglycerides Low vitamin D History of seizure disorder, but no seizures for 10 years Suicidal ideation prior to admission. DISCHARGE MEDICATIONS: Carbamazepine 200 mg by mouth twice a day, Effexor 150 mg by mouth daily, guanfacine 1 mg by mouth at bedtime, lithium 450 mg by mouth twice a day, vitamin D 5000 units by mouth daily, folic acid 1 mg by mouth daily. Lorazepam 0.5mg daily PRN panic attack. DISPOSITION: The patient is discharging from the unit to go to the intake appointment at the [facility]. The patient will then return home. He reports 1 of his friends will stay with him and monitor his medication compliance and assist him in getting to followup treatment. The patient was given a letter that he could return to work on Tuesday, July 11, 2017. The patient was also given instructions that a primary care provider should recheck his cholesterol and vitamin D level in 1-2 months. His outpatient provider can check his lithium level, thyroid function and kidney function every 6 months while taking lithium. The patient was warned about the risks of Effexor causing manic episodes and agitation and suicidality. The patient reported that his primary care provider would refer him to a Neurologist regarding his carbamazepine dosing. LEGAL STATUS: The patient was admitted on a M1 hold but agreed to treatment on the inpatient unit on a voluntary basis, so he will be discharged to be receiving outpatient treatment on a voluntary basis. /[id number]/MODL MTDD
== END 2017-07-09 12:05 | disposition home or self-care (01) | DRG 885 ==
LOC: BBEH 07-03 09:45
DX: F33.3 Major depressive disorder, recurrent, severe with psychotic symptoms (principal); F90.0 Attention-deficit hyperactivity disorder, predominantly inattentive type; F41.1 Generalized anxiety disorder; F41.0 Panic disorder [episodic paroxysmal anxiety]; E78.1 Pure hyperglyceridemia; E55.9 Vitamin D deficiency, unspecified; G40.909 Epilepsy, unspecified, not intractable, without status epilepticus; G43.909 Migraine, unspecified, not intractable, without status migrainosus; Z87.820 Personal history of traumatic brain injury; Z91.5 Personal history of self-harm; Z88.0 Allergy status to penicillin
CPT/HCPCS: 80305; 82607-90; G0480